=== PATIENT | female | born 1970 | race Caucasian/White ===

== ENCOUNTER 2019-07-30 05:24 | Day surgery (SDC) | payer BC, OTHER ==
[2019-07-28 17:45] VITALS: BMI 28.3
--- NOTE | 2019-07-30 09:19 | HP ---
History & Physical Update - History History: No Change - Physical Physical: No Change - Assessment Assessment: No Change - Plan Plan: No Change (no change in HP)
[2019-07-30] MEDS ORDERED: DEXAMETHASONE SOD PHOSPHATE 4 MG/1 ML VIAL ONE ×2 (09:20→09:50)
[2019-07-30] MEDS ORDERED: PROPOFOL 20 ML ONE ×5 (09:20→09:57)
[2019-07-30] MEDS ORDERED: ROCURONIUM BROMIDE 50 MG/5 ML SYRINGE ONE (09:20)
[2019-07-30] MEDS ORDERED: MIDAZOLAM HCL 2 MG/2 ML SINGLE DOSE VIAL ONE (09:21)
[2019-07-30] MEDS ORDERED: BUPIVACAINE HCL/PF 0.5% (5 MG/ML) 30 ML VIAL IJ ONE (09:28)
[2019-07-30] MEDS ORDERED: ceFAZolin SODIUM 1 GM VIAL IVPB ONE (09:55)
[2019-07-30] MEDS ORDERED: ceFAZolin SODIUM 1 GM VIAL ONE (10:01)
[2019-07-30] MEDS ORDERED: BUPIVACAINE HCL/PF 0.5% (5MG/ML) 10 ML VIAL IJ ONE ×2 (10:44)
[2019-07-30] MEDS ORDERED: ONDANSETRON 4 MG/2 ML VIAL IVPUSH PRN (11:16)
[2019-07-30] MEDS ORDERED: oxyCODONE HCL 5 MG TABLET PO PRN (11:16)
[2019-07-30] MEDS ORDERED: FAMOTIDINE 20 MG/50 ML IVPB 20 MG/50 ML MG IVPB ONE ×2 (11:27→12:59)
[2019-07-30] MEDS ORDERED: LACTATED RINGERS SOLUTION 1,000 ML IV SCH (11:30)
[2019-07-30] MEDS ORDERED: FAMOTIDINE 20 MG PREMIXED IVPB IVPB ONE (11:30)
--- NOTE | 2019-07-30 12:09 | OP ---
Operative Note - Note: Operative Date: 07/30/19 Pre-Operative Diagnosis: BRACA POSITIVE Operation: LAPAROSCOPIC BILATERAL SALPINGO-OOPHORECTOMY Findings: DICTATED Post-Operative Diagnosis: Same as Pre-op Surgeon: Allison Wu Cleaning Associate: Ariadna Vergara Anesthesiologist/BABYSITTER: Luz Marina Campuzano Anesthesia: General Specimens Removed: bilateral fallopian tubes, bilateral ovaries Estimated Blood Loss (mls): 5 Drains, Volume Out (mls): 250 (ml yellow urine) Fluid Volume Replaced (mls): 700 (ml LR) Operative Report Dictated: Yes
--- NOTE | 2019-07-30 12:13 | SURG ---
Surgery Repairer [employer] Note Repairer Art Objects: Ariadna Vergara PA-C (Suzy) Date of Service: 07/30/19 Diagnosis: BRACA POSITIVE Procedure: Operation: LAPAROSCOPIC BILATERAL SALPINGO-OOPHORECTOMY I was present for the entirety of the operative procedure. For further detail, please refer to operative report. Visit type - Case Type Case Type: Scheduled - Emergency Emergency Visit: No - New patient This patient is new to me today: Yes Date on this admission: 07/30/19 - Critical Care Critical Care patient: No
[2019-07-30 13:08] VITALS: BP 124/72; PULSE 80; TEMP 98.4
--- NOTE | 2019-08-03 12:08 | PATH ---
Surgical Pathology Report Patient Name: NAI CEE [facility]. Rec. #: [id number] /Age/Gender: 1970 (Age: 49) / F Account: [id number] Location: [facility] SURGICAL Taken: 07/30/2019 Received: 07/30/2019 Reported: 08/03/2019 Physicians: Allison Wu M.D. Specimen(s) Received A: RIGHT FALLOPIAN TUBE AND OVARY B: LEFT FALLOPIAN TUBE AND OVARY Clinical History Ovarian cysts Final Diagnosis A. RIGHT FALLOPIAN TUBE AND OVARY, SALPINGO-OOPHORECTOMY: OVARY WITH BENIGN INCLUSION CYSTS. PORTION OF FALLOPIAN TUBE WITH PARATUBAL CYSTS. B. LEFT FALLOPIAN TUBE AND OVARY, SALPINGO-OOPHORECTOMY: OVARY WITH BENIGN INCLUSION CYSTS. PORTION OF FALLOPIAN TUBE WITH PARATUBAL CYSTS. Electronically Signed Ema Lanier M.D. Gross Description A. Received in formalin labelled "right fallopian tube and ovary" is a 4.0 cm long by 0.5 cm in diameter portion of fallopian tube with a fimbriated end. Multiple paratubal cysts measuring up to 1cm in greatest dimension are present. The attached ovary measures 2.5 x 1.5 x 0.8 cm. Serial sections of the ovary is unremarkable. Sectioned and totally submitted in 3 cassettes. B. Received in formalin labelled "left fallopian tube and ovary" is a 5.0 cm long by 0.5 cm in diameter portion of fallopian tube with a fimbriated end. Two paratubal cysts measuring 2.5 and 0.7cm in greatest dimension are present. The attached ovary measures 3.5 x 1.3 x 0.5 cm. Serial sections of the ovary is unremarkable. The entire ovary and new accounts representative sections from the tube submitted in 3 cassettes. KWS/07/30/2019 sulki/07/30/2019
--- NOTE | 2019-08-24 10:38 | OP ---
DATE OF OPERATION: 07/30/2019 PREOPERATIVE DIAGNOSIS: BRCA positive. OPERATION: Laparoscopic bilateral salpingo-oophorectomy. POSTOPERATIVE DIAGNOSIS: BRCA positive. SURGEON: Angela Fernández MD STEEL PLATE PRINTER: RAZIA Salas ANESTHESIA: General. ANESTHESIOLOGIST: Luz Marina Campuzano CRNA SPECIMEN REMOVED: Bilateral fallopian tubes and bilateral ovaries. ESTIMATED BLOOD LOSS: 5 mL. DESCRIPTION OF PROCEDURE: Patient was taken to the operating room. Placed in dorsal lithotomy position. Prepped and draped in the usual sterile fashion. Time-out was performed in accordance with hospital regulation. Lim catheter was then inserted into the bladder. Attention was then drawn to the umbilicus where a 5-mm umbilical incision was made. Veress needle was inserted into the cavity. Approximately 3-4 L of CO2 was insufflated in the cavity. Veress needle was then removed, and a 5-mm trocar was then inserted. Laparoscope and camera revealed normal tubes and ovaries. An 11-mm incision was made on the right and a 5-mm incision made on the left. Trocars were inserted under direct visualization. Graspers then used to grab the left ovary and tube, and LigaSure was then used to cut and coagulate the left ovary and left fallopian tube away from the patient. Specimen was placed in Endobag and removed. Same procedure was repeated on the right side. Right tube and ovary was grasped with a grasper, and LigaSure was then used to remove the ovary using coagulation and cutting. It was used to remove the ovary and tube away from the patient. Hemostasis was achieved. Estimated blood loss was about 5 mL. Patient had tolerated procedure well and was taken to the recovery room in stable condition. ANGELA FERNÁNDEZ M.D. [id number]
== END 2019-07-30 13:35 | disposition home or self-care (01) ==
LOC: JASU-SURG 05:24
PROVIDERS: ATTEND Obstetrics & Gynecology
PROC: 0UB24ZZ Excision of Bilateral Ovaries, Percutaneous Endoscopic Approach (ICD-10-PCS; principal; 2019-07-30 09:30)
PROC: 0UB74ZZ Excision of Bilateral Fallopian Tubes, Percutaneous Endoscopic Approach (ICD-10-PCS; 2019-07-30 09:30)
DX: N83.292 Other ovarian cyst, left side (principal); N83.291 Other ovarian cyst, right side; N83.8 Other noninflammatory disorders of ovary, fallopian tube and broad ligament; Z85.3 Personal history of malignant neoplasm of breast
CPT/HCPCS: 86850; 86900; 86901; 88305-TC; 94760